=== PATIENT | male | born 1990 | race Caucasian/White ===

== ENCOUNTER 2023-05-08 20:04 | Emergency (ER) | payer OTHER ==
[~2023-05-08] VITALS: Ht 172.7 cm; Wt 77.3 kg
[2023-05-08 20:28] VITALS: TEMP 98.1
[2023-05-08] MEDS ORDERED: Acetaminophen 500 MG TAB PO ONE (21:00)
[2023-05-08] MEDS ORDERED: AMOXICILLIN 8751 TAB PO (21:00)
[2023-05-08] MEDS ORDERED: Amoxicillin/Clavulanate K+ 875/125 MG TAB PO ONE (21:00)
[2023-05-08 21:15] VITALS: BP 131/94; PULSE 87
== END 2023-05-08 21:15 | disposition home or self-care (01) ==
LOC: COL.ER 20:04
DX: J01.00 Acute maxillary sinusitis, unspecified (principal); F17.200 Nicotine dependence, unspecified, uncomplicated